=== PATIENT | male | born 1990 | race Caucasian/White ===

== ENCOUNTER 2022-06-17 08:24 | Day surgery (SDC) | payer OTHER ==
[~2022-06-17] VITALS: Ht 182.9 cm; Wt 97.5 kg
[~2022-06-17 08:24] MED LIST: AMPICILLIN SOD/SULBACTAM SOD 3 GM in D5W MINI-BAG PLUS 100 ML IV ONE; BUPIVACAINE LIPOSOME/PF 1.3% 20ML VIAL (13.3MG/ML)(EXPAREL) As Ordered ONE; BUPR-71 PO; LIDOCAINE 2% W/ EPINEPHRINE 1.7 ML DENTAL INJ As Ordered ONE; METH10CO PO; SERT50TA29 PO; WELL200T PO; ZOLO100T PO; dexameTHASONE 4 MG/ML 1ML VIAL (J1100 PER 1MG) IV ONE
[2022-06-17] MEDS ORDERED: LR 1,000 ML IV SCH ×2 (08:55→11:25)
[2022-06-17] MEDS ORDERED: propofoL 200 MG/20 ML VIAL As Ordered ONE (10:42)
[2022-06-17] MEDS ORDERED: ROCURONIUM BROMIDE 50 MG/5 ML VIAL As Ordered ONE (10:42)
[2022-06-17] MEDS ORDERED: ONDANSETRON 4MG 2ML VIAL As Ordered ONE (10:42)
[2022-06-17] MEDS ORDERED: fentaNYL 100 MCG/2 ML INJECTION As Ordered ONE (10:42)
[2022-06-17] MEDS ORDERED: KETOROLAC 60MG 2ML VIAL As Ordered ONE (10:42)
[2022-06-17] MEDS ORDERED: LIDOCAINE 2% 100MG/5ML SDV (FOR ANES.) As Ordered ONE (10:42)
[2022-06-17] MEDS ORDERED: MIDAZOLAM INJ 2MG/2ML VIAL (J2250 PER 1MG) As Ordered ONE (10:42)
[2022-06-17] MEDS ORDERED: SUGAMMADEX SODIUM 500 MG/5 ML VIAL (BRIDION) As Ordered ONE (10:42)
[2022-06-17] MEDS ORDERED: ACETAMINOPHEN 1000MG 100ML IV BTL (OFIRMEV) (J0131 PER 10MG) As Ordered ONE (11:13)
[2022-06-17] MEDS ORDERED: oxyCODONE 5MG TAB PO PRN (11:25)
[2022-06-17] MEDS ORDERED: HYDROMORPHONE HCL 0.5 MG/ 0.5 ML SYRINGE (J1170 PER 1) IV PRN (11:25)
[2022-06-17] MEDS ORDERED: fentaNYL 100 MCG/2 ML INJECTION IV PRN (11:25)
[2022-06-17 12:10] VITALS: BP 162/93
== END 2022-06-17 12:40 | disposition home or self-care (01) ==
LOC: M SDC 08:24
PROVIDERS: ATTEND Dentist
DX: K02.9 Dental caries, unspecified (principal); F40.232 Fear of other medical care; F41.9 Anxiety disorder, unspecified; F19.11 Other psychoactive substance abuse, in remission; Z79.899 Other long term (current) drug therapy; Z79.891 Long term (current) use of opiate analgesic
CPT/HCPCS: 88300; C9290; D7210; D9223; J0131; J0295; J1100; J1885; J2250; J2405; J3010

== ENCOUNTER → 2022-10-13 | Outpatient (REF) ==
[~2022-10-13] MED LIST changes: -AMPICILLIN SOD/SULBACTAM SOD 3 GM in D5W MINI-BAG PLUS 100 ML IV ONE; -BUPIVACAINE LIPOSOME/PF 1.3% 20ML VIAL (13.3MG/ML)(EXPAREL) As Ordered ONE; -LIDOCAINE 2% W/ EPINEPHRINE 1.7 ML DENTAL INJ As Ordered ONE; -dexameTHASONE 4 MG/ML 1ML VIAL (J1100 PER 1MG) IV ONE
== END ==
LOC: M LABCFH 13:17
PROVIDERS: ATTEND Student in an Organized Health Care Education/Training Program
DX: D72.10 Eosinophilia, unspecified (principal)